=== PATIENT | female | born 1940 | race Two or more races ===

== ENCOUNTER 2023-07-06 10:25 | Emergency (ER) | payer MEDICARE, OTHER ==
[~2023-07-06] VITALS: Ht 165.1 cm; Wt 65.5 kg
[2023-07-06 11:24] VITALS: PULSE 68; RESP 20; TEMP 97.8; O2SAT 96
[2023-07-06 12:00] VITALS: BP 175/53
[2023-07-06] MEDS ORDERED: cefTRIAXone SOD 1,000 MG VL IM ONE (12:15)
[2023-07-06] MEDS ORDERED: LIDOCAINE 1% HCL (LOCAL ANESTH.) INJ 20ML MDV IJ ONE (12:30)
[2023-07-06] MEDS ORDERED: BENZ200C64 PO (13:01)
[2023-07-06] MEDS ORDERED: AUG875T PO (13:01)
== END 2023-07-06 13:08 | disposition home or self-care (01) ==
LOC: ER 10:25
DX: H66.91 Otitis media, unspecified, right ear (principal); J20.9 Acute bronchitis, unspecified; R03.0 Elevated blood-pressure reading, without diagnosis of hypertension
CPT/HCPCS: 71046; 96372; 99283; J0696; J2001